=== PATIENT | male | born 1965 | race Caucasian/White ===

== ENCOUNTER 2021-11-13 12:03 | Inpatient (IN) | payer OTHER ==
[2021-11-13 12:45] VITALS: BMI 23.1
[2021-11-13] MEDS ORDERED: MAGNESIUM HYDROX 2400MG/30ML ORAL SUSPENSION 30 ML CUP PO PRN (13:38)
[2021-11-13] MEDS ORDERED: LOPERAMIDE HCL 2 MG CAPSULE PO PRN (13:38)
[2021-11-13] MEDS ORDERED: MAG HYDROX/AL HYDROX/SIMETH 30 ML UNIT-DOSE CUP PO PRN (13:38)
[2021-11-13] MEDS ORDERED: ACETAMINOPHEN 325 MG TABLET (FP) PO PRN (13:38)
[2021-11-13] MEDS ORDERED: IBUPROFEN 600 MG TABLET (FP) PO PRN (13:38)
[2021-11-13] MEDS ORDERED: ONDANSETRON *ODT* 4 MG TABLET SL PRN (13:38)
[2021-11-13] MEDS ORDERED: BISMUTH SUBSALICYLATE 262 MG/15 ML BTL PO PRN (13:38)
[2021-11-13] MEDS ORDERED: MAGNESIUM CITRATE 300 ML BOTTLE PO PRN (13:38)
[2021-11-13] MEDS ORDERED: BENZOCAINE/MENTHOL (CHLORASEPTIC ) LOZENGE MM PRN (13:38)
[2021-11-13] MEDS ORDERED: IBUPROFEN 400 MG TABLET (FP) PO PRN (13:38)
[2021-11-13] MEDS ORDERED: DICYCLOMINE HCL 10 MG CAPSULE PO PRN (13:38)
[2021-11-13] MEDS: hydrOXYzine PAMOATE 25 MG CAPSULE (FP) PO SCH ×3 (15:23→22:13)
[2021-11-13] MEDS ORDERED: MELATONIN 5 MG TABLETS PO SCH (22:00)
[2021-11-13] MEDS: THIAMINE HCL 100 MG TABLET (FP) PO SCH (22:12)
[2021-11-13] MEDS: SUVOREXANT 10 MG TABLET PO PRN (22:14)
[2021-11-14] MEDS: hydrOXYzine PAMOATE 25 MG CAPSULE (FP) PO SCH ×5 (05:24→22:23)
[2021-11-14] MEDS ORDERED: chlordiazePOXIDE HCL 25 MG CAPSULE PO PRN (10:00)
[2021-11-14] MEDS: PRENATAL VITAMINS W/ FOLIC ACID TABLET (FP) PO SCH (10:15)
[2021-11-14] MEDS: METHOCARBAMOL 500 MG TABLET PO PRN (10:16)
[2021-11-14] MEDS: NICOTINE 7 MG/24 HOURS TOPICAL PATCH TD SCH (10:16)
[2021-11-14] MEDS: chlordiazePOXIDE HCL 25 MG CAPSULE PO SCH ×3 (10:53→22:20)
[2021-11-14 15:31] LABS: HEMATOCRIT 44.4 % (35.4-49); HEMOGLOBIN 15.3 GM/dL (11.7-16.9); MCH 33.2 pg (25.7-33.7); MCHC 34.5 g/dl (32.0-35.9); MEAN PLT VOLUME 9.1 fl (7.5-11.1); PLATELET COUNT 265 10^3/uL (134-434); RBC 4.62 M/mm3 (4.00-5.60); RDW 14.5 % (11.9-15.9); WHITE BLOOD COUNT 7.5 K/mm3 (4.0-10.0)
[2021-11-14 15:32] LABS: CALCIUM 9.7 mg/dL (8.5-10.1)
[2021-11-14 15:33] LABS: ALBUMIN 3.8 g/dl (3.4-5.0); BLOOD UREA NITROGEN 8.2 mg/dL (7-18)
[2021-11-14 15:36] LABS: CREATININE 0.5 mg/dL (0.55-1.3)
[2021-11-14 15:37] LABS: BILIRUBIN,TOTAL 0.7 mg/dL (0.2-1); TOT PROT 7.3 g/dl (6.4-8.2)
[2021-11-14] MEDS: THIAMINE HCL 100 MG TABLET (FP) PO SCH (22:19)
[2021-11-14] MEDS: SUVOREXANT 10 MG TABLET PO PRN (22:21)
[2021-11-15] MEDS: chlordiazePOXIDE HCL 25 MG CAPSULE PO SCH ×4 (05:12→22:17)
[2021-11-15] MEDS: hydrOXYzine PAMOATE 25 MG CAPSULE (FP) PO SCH ×5 (05:12→22:17)
[2021-11-15] MEDS: ACETAMINOPHEN 325 MG TABLET (FP) PO PRN (05:13)
[2021-11-15] MEDS: PRENATAL VITAMINS W/ FOLIC ACID TABLET (FP) PO SCH (10:23)
[2021-11-15] MEDS: NICOTINE 7 MG/24 HOURS TOPICAL PATCH TD SCH (10:24)
[2021-11-15] MEDS: FLUTICASONE PROP 0.05% 16 GM NASAL SPRAY NS SCH ×2 (12:49→23:14)
[2021-11-15] MEDS: BACITRACIN 0.9 GM PACKET TP SCH ×2 (12:49→22:19)
[2021-11-15] MEDS: PANTOPRAZOLE 20 MG TABLET PO SCH (14:37)
[2021-11-15] MEDS: THIAMINE HCL 100 MG TABLET (FP) PO SCH (22:17)
[2021-11-15] MEDS: SUVOREXANT 10 MG TABLET PO PRN (22:19)
[2021-11-16] MEDS: hydrOXYzine PAMOATE 25 MG CAPSULE (FP) PO SCH ×5 (05:34→22:30)
[2021-11-16] MEDS: chlordiazePOXIDE HCL 25 MG CAPSULE PO SCH ×4 (05:34→22:32)
[2021-11-16] MEDS: ACETAMINOPHEN 325 MG TABLET (FP) PO PRN (07:00)
[2021-11-16] MEDS: METHOCARBAMOL 500 MG TABLET PO PRN (10:18)
[2021-11-16] MEDS: BACITRACIN 0.9 GM PACKET TP SCH ×2 (10:18→22:30)
[2021-11-16] MEDS: FLUTICASONE PROP 0.05% 16 GM NASAL SPRAY NS SCH ×2 (10:18→22:30)
[2021-11-16] MEDS: PRENATAL VITAMINS W/ FOLIC ACID TABLET (FP) PO SCH (10:18)
[2021-11-16] MEDS: PANTOPRAZOLE 20 MG TABLET PO SCH (10:18)
[2021-11-16] MEDS: NICOTINE 7 MG/24 HOURS TOPICAL PATCH TD SCH (10:19)
[2021-11-16] MEDS: THIAMINE HCL 100 MG TABLET (FP) PO SCH (22:31)
[2021-11-17] MEDS ORDERED: chlordiazePOXIDE HCL 10 MG CAPSULE PO PRN
[2021-11-17] MEDS: chlordiazePOXIDE HCL 10 MG CAPSULE PO SCH ×4 (05:58→22:29)
[2021-11-17] MEDS: ACETAMINOPHEN 325 MG TABLET (FP) PO PRN (05:58)
[2021-11-17] MEDS: hydrOXYzine PAMOATE 25 MG CAPSULE (FP) PO SCH ×5 (05:58→22:28)
[2021-11-17] MEDS: PANTOPRAZOLE 20 MG TABLET PO SCH (10:17)
[2021-11-17] MEDS: FLUTICASONE PROP 0.05% 16 GM NASAL SPRAY NS SCH ×2 (10:17→22:29)
[2021-11-17] MEDS: BACITRACIN 0.9 GM PACKET TP SCH ×2 (10:17→22:30)
[2021-11-17] MEDS: PRENATAL VITAMINS W/ FOLIC ACID TABLET (FP) PO SCH (10:17)
[2021-11-17] MEDS: METHOCARBAMOL 500 MG TABLET PO PRN ×2 (10:17→17:44)
[2021-11-17] MEDS: NICOTINE 7 MG/24 HOURS TOPICAL PATCH TD SCH (10:18)
[2021-11-17] MEDS: THIAMINE HCL 100 MG TABLET (FP) PO SCH (22:28)
[2021-11-18] MEDS ORDERED: chlordiazePOXIDE HCL 10 MG CAPSULE PO SCH (05:00)
[2021-11-18] MEDS: hydrOXYzine PAMOATE 25 MG CAPSULE (FP) PO SCH ×2 (05:15→09:51)
[2021-11-18 09:06] VITALS: BP 117/74; PULSE 76; RESP 17; TEMP 97.3
[2021-11-18] MEDS: NICOTINE 7 MG/24 HOURS TOPICAL PATCH TD SCH (09:51)
[2021-11-18] MEDS: PRENATAL VITAMINS W/ FOLIC ACID TABLET (FP) PO SCH (09:51)
[2021-11-18] MEDS: FLUTICASONE PROP 0.05% 16 GM NASAL SPRAY NS SCH (09:51)
[2021-11-18] MEDS: BACITRACIN 0.9 GM PACKET TP SCH (09:51)
[2021-11-18] MEDS: PANTOPRAZOLE 20 MG TABLET PO SCH (09:51)
[2021-11-19] MEDS ORDERED: chlordiazePOXIDE HCL 10 MG CAPSULE PO ONE (05:00)
== END 2021-11-18 12:12 | disposition home or self-care (01) | DRG 897 ==
LOC: YASAS 12:03 → Y6N 13:42
PROVIDERS: ADMIT Allergy & Immunology; ATTEND Family Medicine
PROC: HZ2ZZZZ Detoxification Services for Substance Abuse Treatment (ICD-10-PCS; principal; 2021-11-13)
DX: F10.230 Alcohol dependence with withdrawal, uncomplicated (principal); F14.20 Cocaine dependence, uncomplicated; F12.20 Cannabis dependence, uncomplicated; F17.210 Nicotine dependence, cigarettes, uncomplicated; Z87.19 Personal history of other diseases of the digestive system
CPT/HCPCS: 36415; 80053; 82962; 85027; 86780; C9803-CS; U0003; U0005

== ENCOUNTER 2022-11-01 11:41 | Inpatient (IN) | payer OTHER ==
[2022-11-01 11:51] VITALS: BMI 21.2
[2022-11-01] MEDS ORDERED: BENZOCAINE/MENTHOL (CHLORASEPTIC ) LOZENGE MM PRN (12:16)
[2022-11-01] MEDS ORDERED: POLYETHYLENE GLYCOL (HEALTHYLAX) 3350 17 GM PACKET PO PRN (12:16)
[2022-11-01] MEDS ORDERED: MAG HYDROX/AL HYDROX/SIMETH 30 ML UNIT-DOSE CUP PO PRN (12:16)
[2022-11-01] MEDS ORDERED: COLLOIDAL OATMEAL 1 BAR EACH TP PRN (12:16)
[2022-11-01] MEDS ORDERED: guaiFENesin 600 MG TABLET.ER (FP) PO PRN (12:16)
[2022-11-01] MEDS ORDERED: MAGNESIUM HYDROX 2400MG/30ML ORAL SUSPENSION 30 ML CUP PO PRN (12:16)
[2022-11-01] MEDS ORDERED: AMMONIUM LACTATE 12% LOTION 225 GM BOTTLE TP PRN (12:16)
[2022-11-01] MEDS ORDERED: BENZONATATE 200 MG CAPSULE PO PRN (12:16)
[2022-11-01] MEDS ORDERED: ACETAMINOPHEN 325 MG TABLET (FP) PO PRN (12:16)
[2022-11-01] MEDS ORDERED: LOPERAMIDE HCL 2 MG CAPSULE PO PRN (12:16)
[2022-11-01] MEDS ORDERED: NALOXONE HCL (KLOXXADO) 8 MG SPRAY NS PRN (12:16)
[2022-11-01] MEDS ORDERED: NALOXONE HCL 0.4 MG/ML VIAL IM PRN (12:16)
[2022-11-01] MEDS ORDERED: PRENATAL VITAMINS W/ FOLIC ACID TABLET (FP) PO ONE (13:34)
[2022-11-01] MEDS: PRENATAL VITAMINS W/ FOLIC ACID TABLET (FP) PO SCH (13:36)
[2022-11-01] MEDS: IBUPROFEN 600 MG TABLET (FP) PO PRN ×2 (14:37→21:21)
[2022-11-01] MEDS: hydrOXYzine PAMOATE 25 MG CAPSULE (FP) PO PRN (14:37)
[2022-11-01 16:28] LABS: HEMATOCRIT 43.7 % (35.4-49); HEMOGLOBIN 14.7 GM/dL (11.7-16.9); MCH 32.9 pg (25.7-33.7); MCHC 33.6 g/dl (32.0-35.9); PLATELET COUNT 356 10^3/uL (134-434); RBC 4.46 M/mm3 (4.00-5.60); RDW 13.5 % (11.9-15.9); WHITE BLOOD COUNT 9.1 K/mm3 (4.0-10.0)
[2022-11-01 16:31] LABS: POTASSIUM 4.3 mmol/L (3.5-5.1)
[2022-11-01 16:35] LABS: ALBUMIN 3.8 g/dl (3.4-5.0); BLOOD UREA NITROGEN 8.6 mg/dL (7-18)
[2022-11-01 16:38] LABS: CREATININE 0.7 mg/dL (0.55-1.3)
[2022-11-01 16:39] LABS: BILIRUBIN,TOTAL 1.2 mg/dL (0.2-1); TOT PROT 7.2 g/dl (6.4-8.2)
[2022-11-01 17:01] LABS: SYPHILIS W/ RPR CONF NON-REACTIVE (NONREACTIVE)
[2022-11-01] MEDS: THIAMINE HCL 100 MG TABLET (FP) PO SCH (21:18)
[2022-11-01] MEDS: SUVOREXANT 10 MG TABLET PO PRN (21:20)
[2022-11-01] MEDS: traZODone HCL 50 MG TABLET (FP) PO SCH (21:20)
[2022-11-01] MEDS ORDERED: MELATONIN 5 MG TABLETS PO SCH (22:00)
[2022-11-02] MEDS: PRENATAL VITAMINS W/ FOLIC ACID TABLET (FP) PO SCH (09:37)
[2022-11-02 09:44] LABS: PH,URINE 6.5 (5.0-8.0); URINE APPEARANCE CLEAR; URINE BILIRUBIN NEGATIVE (NEGATIVE); URINE COLOR YELLOW; URINE GLUCOSE (UA) NEGATIVE (NEGATIVE); URINE KETONE NEGATIVE (NEGATIVE); URINE LEUK ESTERASE NEGATIVE (NEGATIVE); URINE NITRITE NEGATIVE (NEGATIVE); URINE PROTEIN NEGATIVE (NEGATIVE); URINE UROBILINOGEN 0.2 mg/dL (0.2-1.0)
[2022-11-02] MEDS ORDERED: BACLOFEN 10 MG TABLET (FP) PO PRN (12:52)
[2022-11-02] MEDS ORDERED: NALTREXONE HCL 50 MG TABLET PO ONE (13:30)
[2022-11-02] MEDS: SODIUM CHLORIDE NASAL SPRAY 44 ML BOTTLE NS PRN ×2 (14:47→21:21)
[2022-11-02] MEDS: THIAMINE HCL 100 MG TABLET (FP) PO SCH (21:20)
[2022-11-02] MEDS: traZODone HCL 50 MG TABLET (FP) PO SCH (21:20)
[2022-11-03] MEDS: NALTREXONE HCL 50 MG TABLET PO SCH (10:05)
[2022-11-03] MEDS: PANTOPRAZOLE 20 MG TABLET PO SCH (10:06)
[2022-11-03] MEDS: SODIUM CHLORIDE NASAL SPRAY 44 ML BOTTLE NS PRN ×2 (10:06→21:23)
[2022-11-03] MEDS: PRENATAL VITAMINS W/ FOLIC ACID TABLET (FP) PO SCH (10:06)
[2022-11-03] MEDS: IBUPROFEN 600 MG TABLET (FP) PO PRN (11:04)
[2022-11-03] MEDS ORDERED: PNEUMOC 20-VAL CONJ-DIP CRM/PF 0.5 ML SYRINGE IM ONE (12:00)
[2022-11-03] MEDS: IBUPROFEN 400 MG TABLET (FP) PO PRN (21:21)
[2022-11-03] MEDS: traZODone HCL 50 MG TABLET (FP) PO SCH (21:21)
[2022-11-03] MEDS: THIAMINE HCL 100 MG TABLET (FP) PO SCH (21:21)
[2022-11-03] MEDS: SUVOREXANT 10 MG TABLET PO PRN (21:22)
[2022-11-04] MEDS: PRENATAL VITAMINS W/ FOLIC ACID TABLET (FP) PO SCH (10:07)
[2022-11-04] MEDS: PANTOPRAZOLE 20 MG TABLET PO SCH (10:07)
[2022-11-04] MEDS: NALTREXONE HCL 50 MG TABLET PO SCH (10:07)
[2022-11-04] MEDS: SODIUM CHLORIDE NASAL SPRAY 44 ML BOTTLE NS PRN ×2 (10:07→21:22)
[2022-11-04] MEDS: hydrOXYzine PAMOATE 25 MG CAPSULE (FP) PO PRN (10:07)
[2022-11-04] MEDS: THIAMINE HCL 100 MG TABLET (FP) PO SCH (21:20)
[2022-11-04] MEDS: traZODone HCL 50 MG TABLET (FP) PO SCH (21:21)
[2022-11-04] MEDS ORDERED: SUVOREXANT 10 MG TABLET PO PRN (22:00)
[2022-11-05] MEDS: PRENATAL VITAMINS W/ FOLIC ACID TABLET (FP) PO SCH (10:04)
[2022-11-05] MEDS: PANTOPRAZOLE 20 MG TABLET PO SCH (10:04)
[2022-11-05] MEDS: NALTREXONE HCL 50 MG TABLET PO SCH (10:04)
[2022-11-05] MEDS: SODIUM CHLORIDE NASAL SPRAY 44 ML BOTTLE NS PRN ×2 (10:05→21:35)
[2022-11-05] MEDS: LIDOCAINE 5% TOPICAL PATCH TP SCH (16:13)
[2022-11-05] MEDS: traZODone HCL 50 MG TABLET (FP) PO SCH (21:32)
[2022-11-05] MEDS: THIAMINE HCL 100 MG TABLET (FP) PO SCH (21:33)
[2022-11-05] MEDS: LIDOCAINE PATCH REMOVAL MC SCH (21:33)
[2022-11-05] MEDS ORDERED: SUVOREXANT 15 MG TABLET PO PRN (22:00)
[2022-11-06 06:55] VITALS: TEMP 97.5
[2022-11-06] MEDS: PANTOPRAZOLE 20 MG TABLET PO SCH (09:57)
[2022-11-06] MEDS: PRENATAL VITAMINS W/ FOLIC ACID TABLET (FP) PO SCH (09:57)
[2022-11-06] MEDS: NALTREXONE HCL 50 MG TABLET PO SCH (09:57)
[2022-11-06] MEDS: LIDOCAINE 5% TOPICAL PATCH TP SCH (09:57)
[2022-11-06] MEDS ORDERED: CYANOCOBALAMIN (VITAMIN B-12) 1000 MCG/1 ML VIAL IM SCH (10:00)
[2022-11-06] MEDS ORDERED: FLUTICASONE PROP 0.05% 16 GM NASAL SPRAY NS PRN (12:04)
[2022-11-06] MEDS: traZODone HCL 50 MG TABLET (FP) PO SCH (21:19)
[2022-11-06] MEDS: THIAMINE HCL 100 MG TABLET (FP) PO SCH (21:21)
[2022-11-06] MEDS: IBUPROFEN 400 MG TABLET (FP) PO PRN (21:21)
[2022-11-06] MEDS: LIDOCAINE PATCH REMOVAL MC SCH (21:21)
[2022-11-07 06:58] VITALS: BP 111/69; PULSE 57; RESP 16
[2022-11-07] MEDS: PANTOPRAZOLE 20 MG TABLET PO SCH (09:27)
[2022-11-07] MEDS: LIDOCAINE 5% TOPICAL PATCH TP SCH (09:27)
[2022-11-07] MEDS: PRENATAL VITAMINS W/ FOLIC ACID TABLET (FP) PO SCH (09:27)
[2022-11-07] MEDS: NALTREXONE HCL 50 MG TABLET PO SCH (09:27)
[2022-11-09] MEDS ORDERED: CYANOCOBALAMIN (VITAMIN B-12) 1000 MCG/1 ML VIAL IM SCH (10:00)
== END 2022-11-07 09:35 | disposition home or self-care (01) | DRG 895 ==
LOC: YASAS 11:41 → Y3W 12:35
PROVIDERS: ADMIT Allergy & Immunology; ATTEND Psychiatry & Neurology Pain Medicine
PROC: HZ42ZZZ Group Counseling for Substance Abuse Treatment, Cognitive-Behavioral (ICD-10-PCS; principal; 2022-11-01)
DX: F10.20 Alcohol dependence, uncomplicated (principal); F14.20 Cocaine dependence, uncomplicated; F19.280 Other psychoactive substance dependence with psychoactive substance-induced anxiety disorder; F19.282 Other psychoactive substance dependence with psychoactive substance-induced sleep disorder; F12.20 Cannabis dependence, uncomplicated; F17.210 Nicotine dependence, cigarettes, uncomplicated; F19.24 Other psychoactive substance dependence with psychoactive substance-induced mood disorder; F32.9 Major depressive disorder, single episode, unspecified; G47.00 Insomnia, unspecified; D53.1 Other megaloblastic anemias, not elsewhere classified; R09.81 Nasal congestion; M62.830 Muscle spasm of back; M54.50 Low back pain, unspecified; G89.29 Other chronic pain
CPT/HCPCS: 36415; 80053; 81003; 82962; 85027; 86780; 86803; 87635; 87811; 90677; J0475